=== PATIENT | male | born 1985 | race African-American/Black ===

== ENCOUNTER 2019-04-05 10:14 | Inpatient (IN) ==
[2019-04-05] MEDS ORDERED: ROBAXIN PO PRN (12:30)
[2019-04-05] MEDS ORDERED: TYLENOL PO PRN (12:30)
[2019-04-05] MEDS ORDERED: TUBERSOL ID ONE (12:30)
[2019-04-05] MEDS ORDERED: DULCOLAX PR PRN (12:30)
[2019-04-05] MEDS ORDERED: DESYREL PO PRN (12:30)
[2019-04-05] MEDS ORDERED: IMODIUM PO PRN ×2 (12:30)
[2019-04-05] MEDS ORDERED: LIBRIUM PO PRN (12:30)
[2019-04-05] MEDS ORDERED: SEROQUEL PO PRN (12:30)
[2019-04-05] MEDS ORDERED: SINEMET 25/100 PO PRN (12:30)
[2019-04-05] MEDS ORDERED: PHENOBARBITAL IV PRN (12:30)
[2019-04-05] MEDS ORDERED: ZOFRAN ODT PO PRN ×2 (12:30)
[2019-04-05] MEDS ORDERED: D5W 1,000 ML IV PRN ×2 (12:30)
[2019-04-05] MEDS ORDERED: NICOTINE GUM BUCCAL PRN (12:30)
[2019-04-05] MEDS ORDERED: MOTRIN PO PRN (12:30)
[2019-04-05] MEDS ORDERED: SENOKOT PO PRN (12:30)
[2019-04-05] MEDS ORDERED: ZOFRAN IM PRN (12:30)
[2019-04-05] MEDS ORDERED: ATARAX PO PRN (12:30)
[2019-04-05] MEDS ORDERED: BENTYL PO PRN (12:30)
[2019-04-05] MEDS ORDERED: MAALOX PLUS LIQUID PO PRN (12:30)
[2019-04-05] MEDS ORDERED: ZOFRAN IV PRN (12:30)
[2019-04-05 12:56] LABS: HEMATOCRIT 37.8 % (42.0-52.0); HEMOGLOBIN 13.7 g/dL (14.0-18.0); MCH 26.7 PG (27-31); MCHC 36.2 g/dL (33-37); MCV 73.7 FL (81-99); MPV 11.7 FL (7.4-10.4); RBC 5.13 XMIL (4.7-6.1); RDW 14.6 % (11.5-14.5); WBC 6.75 X1000 (4.8-10.8)
[2019-04-05 13:19] LABS: INR 0.92; PROTIME 12.8 Seconds (11.0-16.0)
[2019-04-05 13:21] LABS: CHLORIDE 109 mmol/L (98-107); SODIUM 143 mmol/L (136-145)
[2019-04-05 13:22] LABS: AGAP 9; ALBUMIN 4.3 g/dL (3.5-5.0); ALKALINE PHOSPHATASE 69 U/L (32-122); AMYLASE 56 U/L (20-200); BUN 7 mg/dL (8-22); CALCIUM 8.5 mg/dL (8.8-10.2); COSMO 283; CREATININE 0.8 mg/dL (0.7-1.2); ESTIMATED GFR > 60; GLUCOSE 100 mg/dL (70-104); GOT 14 U/L (10-34); GPT 17 U/L (10-44); LIPASE 23 U/L (13-60); TCO2 25 mmol/L (25-35)
[2019-04-05] MEDS: SUBUTEX SL SCH ×2 (14:14→21:24)
[2019-04-05 14:27] LABS: URINE SOURCE CLEAN CATCH
[2019-04-05 14:37] LABS: BILIRUBIN URINE NEGATIVE (NEGATIVE); BLOOD URINE NEGATIVE (NEGATIVE); CLARITY CLEAR (CLEAR); COLOR YELLOW; GLUCOSE URINE NEGATIVE (NEGATIVE); KETONE URINE NEGATIVE (NEGATIVE); LEUKOCYTES URINE NEGATIVE (NEGATIVE); NITRITE URINE NEGATIVE (NEGATIVE); PH URINE 6.5; PROTEIN URINE NEGATIVE (NEGATIVE); UROBILINOGEN URINE NORMAL
[2019-04-05 14:39] LABS: URINE BACTERIA NEGATIVE /HFP; URINE EPITHELIAL CELLS <10 /HPF (<10); URINE RBC <10 /HPF (<10); URINE WBC <10 /HPF (<10)
[2019-04-05 14:50] LABS: UR AMPHETAMINES QUAL NONE DETECTED (NONE DETECT); UR BARBITUATES QUAL NONE DETECTED (NONE DETECT); UR BENZODIAZEPIN QUAL NONE DETECTED (NONE DETECT); UR CANNABINOIDS QUAL NONE DETECTED (NONE DETECT); UR COCAINE QUAL NONE DETECTED (NONE DETECT); UR METHADONE QUAL NONE DETECTED (NONE DETECT); UR METHAMPHETAMINE QUAL NONE DETECTED (NONE DETECT); UR OPIATES QUAL NONE DETECTED (NONE DETECT); UR OXYCODONE QUAL NONE DETECTED (NONE DETECT); UR PCP QUAL NONE DETECTED (NONE DETECT); UR PROPOXYPHENE QUAL NONE DETECTED (NONE DETECT); UR TCA QUAL NONE DETECTED (NONE DETECT)
[2019-04-05] MEDS: NICODERM PATCH TD PRN (15:30)
--- NOTE | 2019-04-05 20:38 | HISTORY AND PHYSICAL ---
CHIEF COMPLAINT: Nausea and vomiting. HISTORY OF PRESENT ILLNESS: The patient is a 33-year-old male who presented to [facility] secondary to nausea, vomiting, and abdominal pain. Patient notes that he had been abusing Spice, has been using that every day with his last use 2 days ago. SOCIAL HISTORY: Patient is on disability. Lives at home in [place]. PAST MEDICAL HISTORY: Significant for high cholesterol, schizophrenia, chronic anxiety, history of blackouts and seizures that are felt to be drug-related. MEDICATIONS: Crestor 40, Tegretol XR 200 at bedtime, Cogentin 1 mg b.i.d., Tegretol XR 400, folic acid 800, Prolixin 125 every 2 weeks. ALLERGIES: No known drug allergies. REVIEW OF SYSTEMS: CINA score is elevated at 10 secondary to restlessness, nausea, occasional vomiting. He is anxious, fidgety, does have some abdominal pain and diarrhea. Denies any hematochezia, melena, hematemesis. Denies any dysuria. No frequency or urgency. Denies constipation, melena or hematochezia. SUBSTANCE ABUSE HISTORY: Patient was in [place] in 2005, again in 2012 for 14 days. Was in [place] in January 2008 also for Spice. He notes that he started using Spice at 29, currently is back to using every day, started cocaine at age 30 but only used a couple of times. Started smoking at age 21, currently smokes a pack a day. FAMILY HISTORY: Noncontributory. PHYSICAL EXAMINATION: VITAL SIGNS: Reviewed and stable. GENERAL: Patient is awake, alert, oriented. He is in no current respiratory distress. He is calm and pleasant. HEENT: Normocephalic. NECK: Supple. CARDIOVASCULAR: Regular rate. No murmurs. CHEST: Clear, nonlabored. ABDOMEN: Soft. EXTREMITIES: Moves all extremities. NEUROLOGIC: No changes. ASSESSMENT: 1. Nausea. 2. Abdominal pain. 3. Myalgias. 4. Stimulant abuse with Spice. 5. Chronic tobacco abuse. 6. Schizophrenia. 7. High cholesterol. 8. History of seizures. PLAN: We will continue patient in the hospital on his current medications. We will place him on Librium and taper down to assist with withdrawal from Spice. Hopefully, he will continue with the current plan of transitioning to further inpatient care upon discharge. cc: Riccardo Stevenson MD
[2019-04-05] MEDS ORDERED: TEGRETOL XR PO SCH ×2 (21:00)
[2019-04-05] MEDS: COGENTIN PO SCH (21:24)
[2019-04-05] MEDS: TEGRETOL XR PO SCH (21:25)
[2019-04-06] MEDS: SUBUTEX SL SCH ×3 (06:11→21:59)
[2019-04-06] MEDS: PROTONIX PO SCH (06:11)
[2019-04-06] MEDS: FOLIC ACID PO SCH (09:34)
[2019-04-06] MEDS: TEGRETOL XR PO SCH ×2 (09:34→22:00)
[2019-04-06] MEDS: COGENTIN PO SCH ×2 (09:34→21:59)
[2019-04-06] MEDS: VITAMIN B-1 PO SCH (09:34)
[2019-04-06] MEDS: THERA M PLUS PO SCH (09:34)
[2019-04-06] MEDS: NICODERM PATCH TD PRN (16:39)
--- NOTE | 2019-04-07 04:28 | PROGRESS NOTE ---
DATE: 04/06/2019 SUBJECTIVE: Patient notes he is feeling a little bit better. Still having some muscle aches, but tremors have improved. Sweating has improved. PHYSICAL EXAMINATION: Vital Signs: Reviewed. Temperature 97.9 degrees, pulse 66, respiratory 18, BP 132/91. General: Patient is in no current respiratory distress. HEENT: Normocephalic. Neck: Supple. Cardiovascular: Regular rate. No murmurs. Chest: Clear. Abdomen: Soft. Extremities: Moves all extremities. ASSESSMENT: 1. Nausea, vomiting. 2. Abdominal pain. 3. Myalgias. 4. Paresthesias. 5. Paroxysmal sweating. 6. Opiate abuse, withdrawal and stabilization. PLAN: We will continue patient in the hospital. Continue to wean. Continue counseling. Further orders as needed. cc: Riccardo Stevenson MD
[2019-04-07] MEDS: SUBUTEX SL SCH ×2 (06:03→13:41)
[2019-04-07] MEDS: PROTONIX PO SCH (06:04)
[2019-04-07] MEDS: VITAMIN B-1 PO SCH (08:24)
[2019-04-07] MEDS: FOLIC ACID PO SCH (08:24)
[2019-04-07] MEDS: COGENTIN PO SCH ×2 (08:24→21:11)
[2019-04-07] MEDS: THERA M PLUS PO SCH (08:24)
[2019-04-07] MEDS: TEGRETOL XR PO SCH ×2 (08:25→21:11)
[2019-04-07] MEDS: NICODERM PATCH TD PRN (19:17)
[2019-04-07 19:43] VITALS: BP 132/67
--- NOTE | 2019-04-07 21:34 | PROGRESS NOTE ---
DATE: 04/07/2019 SUBJECTIVE: Patient overall notes that he is feeling better. Denies any fevers or chills. PHYSICAL EXAMINATION: Vital Signs: Reviewed and stable. Patient is awake, alert. He is afebrile. Temperature 97.5 degrees, pulse 58, respiratory rate 18, BP 122/57. HEENT: Normocephalic. Neck: Supple. Cardiovascular: Regular rate. No murmurs. Chest: Clear, nonlabored. Abdomen: Soft. Extremities: Moves all extremities. ASSESSMENT: 1. Nausea and vomiting. 2. Abdominal pain. 3. Myalgias. 4. Paresthesias. 5. Paroxysmal sweating. 6. Opiate abuse withdrawal and stabilization. PLAN: We will continue patient in the hospital, continue to wean Suboxone. Hopefully, he can discharge to further rehab in the a.m.. cc: Riccardo Stevenson MD
[2019-04-08] MEDS: SUBUTEX SL SCH (01:04)
[2019-04-08] MEDS: PROTONIX PO SCH (05:37)
[2019-04-08] MEDS ORDERED: SUBUTEX SL ONE (06:00)
--- NOTE | 2019-04-09 23:36 | DISCHARGE SUMMARY ---
ADMISSION DATE: 04/05/2019 DISCHARGE DATE: 04/08/2019 DISCHARGE DIAGNOSES: 1. Nausea, vomiting. 2. Abdominal pain. 3. Myalgias. 4. Paresthesias. 5. Paroxysmal sweating. 6. Amphetamine use and abuse. CONSULTATIONS: None. PROCEDURES: None. BRIEF HOSPITAL COURSE: The patient is a 33-year-old male who presented to [facility] program secondary to polysubstance use and abuse. He was having significant withdrawal symptoms. Was placed in the hospital, placed on Suboxone, continued to taper down. Thankfully, he had uneventful hospital course. On discharge, he is awake, alert. He is in no distress. DISPOSITION: Patient will be discharged to further rehab. Discussed with him that once he leaves rehab he still needs to avoid all persons, places, and situations in which he has been using and abusing in the past. Discussed that he needs to develop hobbies and activities that do not remind or promote him to use and abuse. Greater than 30 minutes was spent in total care. cc: Riccardo Stevenson MD
== END 2019-04-08 05:45 | disposition home or self-care (01) | DRG 897 ==
LOC: P.DIRADM 10:14 → P.MEDSURG 10:28
PROVIDERS: ADMIT Family Medicine; ATTEND Family Medicine
CPT/HCPCS: 80053; 80104; 80301; 80305; 80307; 80320; 81001; 82055; 82150; 83690; 85027; 85610; A9270; G0431; G0434; G0477; G0480; G6040